=== PATIENT | female | born 1995 | race Caucasian/White ===

== ENCOUNTER 2018-05-28 02:25 | Emergency (ER) | END 2018-05-28 05:49 | disposition home or self-care (01) ==

== ENCOUNTER 2018-06-06 02:25 | Inpatient (IN) | END 2018-06-06 20:56 | disposition home or self-care (01) | DRG 770 ==

== ENCOUNTER 2018-10-31 10:21 | Emergency (ER) | payer SELFPAY ==
[~2018-10-31] VITALS: Ht 165.1 cm; Wt 53.8 kg
[~2018-10-31 10:21] MED LIST: ACET1TAB40 PO
[2018-10-31 10:26] VITALS: BP 141/88; PULSE 90; RESP 18; Ht 165.1 cm; Wt 53.8 kg
[2018-10-31] MEDS ORDERED: ONDANSETRON 4 MG INJ IV STA (12:29)
[2018-10-31] MEDS ORDERED: SOD CHLORIDE 0.9% 500 ML IV STA (12:29)
[2018-10-31] MEDS ORDERED: FAMOTIDINE 20 MG INJ IV STA (12:29)
--- NOTE | 2018-10-31 12:33 | ERD ---
ER Documentation Chief Complaint Chief Complaint NAUSEA, VOMITING AND ABDOMINAL CRAMPING THIS MORNING HPI 22-year-old female, with history of anxiety and migraine, presents to the emergency department, complaining of nausea, vomiting and headache that started this morning. The patient denies fever, no chills, no blurred vision, no distal weakness, numbness or tingling. ROS All systems reviewed and are negative except as per history of present illness. Medications Home Meds Active Scripts Hydroxyzine Hcl* (Hydroxyzine Hcl*) 50 Mg Tablet, 50 MG PO Q8 PRN for NAUSEA AND ANXIETY, #20 TAB Prov:FABIOLA JOY MD 10/31/18 Acetaminophen* (Tylenol*) 325 Mg Tablet, 2 TAB PO Q6 PRN for PAIN AND OR ELEVATED TEMP, #20 TAB Prov:FABIOLA JOY MD 10/31/18 Gzgjktzlmu-Yvskvhbxcfref-Gpskonup* (Fioricet*) 50-300-40 Mg Capsule, 1 CAP PO QHS, #7 CAP Prov:FABIOLA JOY MD 10/31/18 Acetaminophen with Codeine (Acetaminophen-Cod #3 Tablet) 1 Each Tablet, 1 TAB PO Q6H, #10 TAB 1 Refill Prov:SONNY HEALY MD 06/06/18 Allergies Allergies: Coded Allergies: ibuprofen (Verified Allergy, Unknown, 05/28/18) rash PMhx/Soc History of Surgery: Yes (vaginal hematoma) Anesthesia Reaction: No Hx Neurological Disorder: No Hx Respiratory Disorders: No Hx Cardiac Disorders: Yes (murmur) Hx Psychiatric Problems: No Hx Miscellaneous Medical Probl: Yes (insomnia) Hx Alcohol Use: No Hx Substance Use: Yes (cannabis for insomnia) Hx Tobacco Use: Yes Smoking Status: Current some day smoker FmHx Family History: No diabetes, No coronary disease Physical Exam Vitals Vital Signs Date Temp Pulse Resp B/P (MAP) Pulse Ox O2 O2 Flow FiO2 Time Delivery Rate 10/31/18 97.8 90 18 141/88 99 10:26 (105) Physical Exam Const: No acute distress Head: Atraumatic Eyes: Normal Conjunctiva ENT: Normal External Ears, Nose and Mouth. Neck: Full range of motion. No meningismus. Resp: Clear to auscultation bilaterally Cardio: Regular rate and rhythm, no murmurs Abd: Soft, non tender, non distended. Normal bowel sounds Skin: No petechiae or rashes Back: No midline or flank tenderness Ext: No cyanosis, or edema Neur: Awake and alert Psych: Normal Mood and Affect Result Diagram: 10/31/18 1247 10/31/18 1247 Results 24 hrs Laboratory Tests Test 10/31/18 12:46 10/31/18 12:47 POC Beta HCG, Qualitative NEGATIVE White Blood Count 8.5 10^3/ul Red Blood Count 4.64 10^6/ul Hemoglobin 13.7 g/dl Hematocrit 41.6 % Mean Corpuscular Volume 89.7 fl Mean Corpuscular Hemoglobin 29.5 pg Mean Corpuscular Hemoglobin Concent 32.9 g/dl Red Cell Distribution Width 13.6 % Platelet Count 293 10^3/UL Mean Platelet Volume 10.7 fl Immature Granulocytes % 0.400 % Neutrophils % 82.6 % Lymphocytes % 12.4 % Monocytes % 4.1 % Eosinophils % 0.1 % Basophils % 0.4 % Nucleated Red Blood Cells % 0.0 /100WBC Immature Granulocytes # 0.030 10^3/ul Neutrophils # 7.0 10^3/ul Lymphocytes # 1.1 10^3/ul Monocytes # 0.4 10^3/ul Eosinophils # 0.0 10^3/ul Basophils # 0.0 10^3/ul Nucleated Red Blood Cells # 0.0 10^3/ul Urine Color YELLOW Urine Clarity CLEAR Urine pH 7.0 Urine Specific [place] 1.024 Urine Ketones TRACE mg/dL Urine Nitrite NEGATIVE mg/dL Urine Bilirubin NEGATIVE mg/dL Urine Urobilinogen NEGATIVE mg/dL Urine Leukocyte Esterase NEGATIVE [place]andra[place]ant/ul Urine Microscopic RBC 169 /HPF Urine Microscopic WBC 1 /HPF Urine Hemoglobin 3+ mg/dL Urine Glucose NEGATIVE mg/dL Urine Total Protein NEGATIVE mg/dl Urine Test NEGATIVE Sodium Level 141 mmol/L Potassium Level 4.4 mmol/L Chloride Level 107 mmol/L Carbon Dioxide Level 23 mmol/L Anion Gap 11 Blood Urea Nitrogen 14 mg/dl Creatinine 0.57 mg/dl Est Glomerular Filtrat Rate mL/min > 60 mL/min Glucose Level 94 mg/dl Calcium Level 9.8 mg/dl Total Bilirubin 1.0 mg/dl Direct Bilirubin 0.00 mg/dl Indirect Bilirubin 1.0 mg/dl Aspartate Amino Transf (AST/SGOT) 20 IU/L Alanine Aminotransferase (ALT/SGPT) 17 IU/L Alkaline Phosphatase 92 IU/L Total Protein 8.3 g/dl Albumin 4.7 g/dl Globulin 3.60 g/dl Albumin/Globulin Ratio 1.30 Lipase 87 U/L Current Medications Medications Dose Sig/Ascencion Start Time Status Last (Trade) Ordered Route PRN Stop Time Admin Dose Reason Admin Sodium 500 ml @ Q1H STAT 10/31/18 DC 10/31/18 Chloride 500 mls/hr IV 12:29 12:48 10/31/18 13:28 Ondansetron 4 mg ONCE STAT 10/31/18 DC 10/31/18 HCl (Zofran IV 12:29 12:48 Inj) 10/31/18 12:32 Famotidine 20 mg ONCE STAT 10/31/18 DC 10/31/18 (Pepcid Iv) IV 12:29 12:48 10/31/18 12:32 Lorazepam 0.5 mg ONCE ONCE 10/31/18 DC 10/31/18 (Ativan) PO 13:00 13:03 10/31/18 13:01 Procedures/MDM Vital signs stable, Physical exam unremarkable, neurovascular exam intact. Differential diagnosis include but not limited to: Classical migraine, sinusitis, visual corrective problems, side effects of medications, dehydration, electrolyte imbalance, endocrine/autoimmune medical condition, stress, anxiety, tension headache. Low suspicion for meningitis, COLLETER tumor, cerebrovascular event. Physical examination and clinical presentation consistent most likely with migraine headache. During the ED course the patient remained stable, no new complaints. Results and clinical impression discussed with patient who agrees with management. The patient is stable to be treated outpatient and will be discharged home, some side effects of prescribed medications (headache, rash, nausea, vomiting, diarrhea, drowsiness, habituation, bleeding, hypertension, interactions with other medications) were reviewed. Follow up with the primary care provider in the next 48h has been recommended. If symptoms persist, worsen or new symptoms develop, then patient should return to the ED immediately. Instructions explained and given directly by me to the patient with acknowledgment and demonstrated understanding. Disclaimer: Inadvertent spelling and grammatical errors are likely due to EHR/dictation software use and do not reflect on the overall quality of patient care. Also, please note that the electronic time recorded on this note does not necessarily reflect the actual time of the patient encounter. Departure Diagnosis: Primary Impression: Migraine headache Condition: Stable Additional Instructions: Thank you very much for allowing us to participate in your care. Your health and safety is our top priority at [facility]. The evaluation in the emergency department has been done to rule out an acute emergency, therefore, chronic conditions like malignancy or other diseases have not been evaluated; therefore, you need to follow up with a primary care provider in the next 48h. If symptoms persist, worsen or new symptoms develop, then patient should return to the ED immediately. Call your primary care doctor TOMORROW for an appointment during the next 2-4 days and bring all the information provided. Have prescriptions filled and follow precisely the directions on the label. If the symptoms get worse and your provider is unavailable, return to the Emergency Department immediately. FABIOLA JOY MD Oct 31, 2018 12:33
[2018-10-31] MEDS ORDERED: LORAZEPAM 0.5 MG TAB PO ONE (13:00)
[2018-10-31] MEDS ORDERED: ACET325T33 PO (13:27)
[2018-10-31] MEDS ORDERED: BUTA1CAP38 PO (13:27)
[2018-10-31] MEDS ORDERED: HYDR50TA15 PO (13:27)
== END 2018-10-31 13:44 | disposition home or self-care (01) ==
LOC: FTE 10:21
DX: G43.909 Migraine, unspecified, not intractable, without status migrainosus (principal); F17.210 Nicotine dependence, cigarettes, uncomplicated
CPT/HCPCS: 36415; 80053; 81001; 81025; 83690; 84703; 85025; 96374; 96375; 99284; J2405; J7040

== ENCOUNTER 2019-01-12 04:14 | Emergency (ER) | payer MEDICAID ==
[~2019-01-12] VITALS: Ht 162.6 cm; Wt 59.1 kg
[~2019-01-12 04:14] MED LIST changes: +ACET325T33 PO; +BUTA1CAP38 PO; +HYDR50TA15 PO
[2019-01-12 04:21] VITALS: Ht 162.6 cm; Wt 59.1 kg
[2019-01-12] MEDS ORDERED: SUMA50TA2 PO (06:20)
--- NOTE | 2019-01-12 06:24 | ERD ---
ER Documentation Chief Complaint Chief Complaint AP, VOMITING X'S 1 HOUR HPI 23-year-old female presents the emergency department complaining of a headache. Patient states that after being in a steam room for an extended period of time last night, she woke this morning at approximately 3 AM with what she describes as her usual migraine headache. This is not the worst headache of her life nor thunderclap in nature and the headache is associated with no focal weakness, numbness, neck stiffness or fever. The pain is bifrontal and does not radiate. She reports the pain is moderate. ROS All systems reviewed and are negative except as per history of present illness. Medications Home Meds Active Scripts Sumatriptan Succinate* (Imitrex*) 50 Mg Tablet, 50 MG PO BID PRN for MIGRAINE HEADACHE, #30 TAB May repeat after 2 hours if needed; MAX 200 mg/24 hours Prov:VIKTOR OSORIO 01/12/19 Hydroxyzine Hcl* (Hydroxyzine Hcl*) 50 Mg Tablet, 50 MG PO Q8 PRN for NAUSEA AND ANXIETY, #20 TAB Prov:FABIOLA JOY MD 10/31/18 Acetaminophen* (Tylenol*) 325 Mg Tablet, 2 TAB PO Q6 PRN for PAIN AND OR ELEVATED TEMP, #20 TAB Prov:FABIOLA JOY MD 10/31/18 Gsnhfqyrtc-Hzjsjjofrlhfs-Thnnwbcd* (Fioricet*) 50-300-40 Mg Capsule, 1 CAP PO QHS, #7 CAP Prov:FABIOLA JOY MD 10/31/18 Acetaminophen with Codeine (Acetaminophen-Cod #3 Tablet) 1 Each Tablet, 1 TAB PO Q6H, #10 TAB 1 Refill Prov:SONNY HEALY MD 06/06/18 Allergies Allergies: Coded Allergies: ibuprofen (Verified Allergy, Unknown, 05/28/18) rash PMhx/Soc History of Surgery: Yes (vaginal hematoma) Anesthesia Reaction: No Hx Neurological Disorder: No Hx Respiratory Disorders: No Hx Cardiac Disorders: Yes (murmur) Hx Psychiatric Problems: No Hx Miscellaneous Medical Probl: Yes (insomnia) Hx Alcohol Use: No Hx Substance Use: Yes (cannabis for insomnia) Hx Tobacco Use: No Smoking Status: Never smoker Physical Exam Vitals Vital Signs Date Temp Pulse Resp B/P (MAP) Pulse Ox O2 O2 Flow FiO2 Time Delivery Rate 01/12/19 98.7 76 18 123/89 99 04:21 (100) Physical Exam GENERAL: The patient is well developed and appropriate for usual state of health in no apparent distress HEENT: Pupils equal, round, and reactive to light. EOMI. There is no scleral icterus. NECK: C-spine is soft and supple, there is no meningismus. There is no cervical lymphadenopathy. LUNGS: Clear to auscultation bilaterally. There are no rales, wheezes or rhonchi. HEART: Regular rate and rhythm, no murmurs, clicks, rubs or gallops. ABDOMEN: Soft, non-tender, non-distended. There are bowel sounds in all four quadrants. No rebound or guarding. EXTREMITIES: There is no peripheral cyanosis or edema. No focal swelling or erythema. NEURO: The patient moves all four extremities with 5/5 strength. Cranial nerves II - XII are intact. Normal gait. Alert and oriented SKIN: There is no apparent rash or petechiae. HEME/LYMPHATIC: There is no evidence of excessive bruising or lymphedema. PSYCHIATRIC: The patient does not appear anxious or depressed. Result Diagram: 01/12/19 0537 01/12/19 0537 Results 24 hrs Laboratory Tests Test 01/12/19 05:37 White Blood Count 10.9 10^3/ul Red Blood Count 4.52 10^6/ul Hemoglobin 13.5 g/dl Hematocrit 40.0 % Mean Corpuscular Volume 88.5 fl Mean Corpuscular Hemoglobin 29.9 pg Mean Corpuscular Hemoglobin Concent 33.8 g/dl Red Cell Distribution Width 12.8 % Platelet Count 239 10^3/UL Mean Platelet Volume 10.4 fl Immature Granulocytes % 0.400 % Neutrophils % 86.4 % Lymphocytes % 8.9 % Monocytes % 4.0 % Eosinophils % 0.1 % Basophils % 0.2 % Nucleated Red Blood Cells % 0.0 /100WBC Immature Granulocytes # 0.040 10^3/ul Neutrophils # 9.4 10^3/ul Lymphocytes # 1.0 10^3/ul Monocytes # 0.4 10^3/ul Eosinophils # 0.0 10^3/ul Basophils # 0.0 10^3/ul Nucleated Red Blood Cells # 0.0 10^3/ul Urine Color YELLOW Urine Clarity CLOUDY Urine pH 7.0 Urine Specific [place] 1.019 Urine Ketones NEGATIVE mg/dL Urine Nitrite NEGATIVE mg/dL Urine Bilirubin NEGATIVE mg/dL Urine Urobilinogen NEGATIVE mg/dL Urine Leukocyte Esterase NEGATIVE [place]/ul Urine Microscopic RBC 5 /HPF Urine Microscopic WBC 3 /HPF Urine Amorphous Crystals FEW /HPF Urine Hemoglobin 1+ mg/dL Urine Glucose NEGATIVE mg/dL Urine Total Protein NEGATIVE mg/dl Sodium Level 144 mmol/L Potassium Level 4.3 mmol/L Chloride Level 106 mmol/L Carbon Dioxide Level 28 mmol/L Anion Gap 10 Blood Urea Nitrogen 12 mg/dl Creatinine 0.61 mg/dl Est Glomerular Filtrat Rate mL/min > 60 mL/min Glucose Level 113 mg/dl Calcium Level 9.2 mg/dl Total Bilirubin 1.0 mg/dl Direct Bilirubin 0.00 mg/dl Indirect Bilirubin 1.0 mg/dl Aspartate Amino Transf (AST/SGOT) 20 IU/L Alanine Aminotransferase (ALT/SGPT) 22 IU/L Alkaline Phosphatase 82 IU/L Total Protein 8.0 g/dl Albumin 4.5 g/dl Globulin 3.50 g/dl Albumin/Globulin Ratio 1.28 Lipase 74 U/L Current Medications Medications Dose Sig/Asecncion Start Time Status Last (Trade) Ordered Route PRN Stop Time Admin Dose Reason Admin Sumatriptan 6 mg ONCE ONCE 01/12/19 Succinate SC 06:30 01/12/19 (Imitrex) 06:31 Procedures/MDM Patient was taken to a room, seen and examined. Initial diagnostic tests were appreciated Medical decision makin-year-old female presents to the emergency department with what appears to be a fairly typical migraine headache. She has no focal neurologic symptoms to make me concerned about intracranial concerns. She de monstrates no evidence of meningitis. She has no risk factors for, nor findings of subarachnoid hemorrhage. Patient is neurologically normal and after symptomatic relief seems to be appropriate for discharge. Departure Diagnosis: Primary Impression: Migraine Condition: Stable Patient Instructions: Headache, Migraine (Classical) Additional Instructions: See your doctor for follow-up as discussed. Take a copy of your test results, if appropriate, to this follow-up visit. See your doctor or return here if your symptoms do not improve as expected. At any time, please return to the emergency department for any change or worsening in her symptoms. VIKTOR OSORIO Jan 12, 2019 06:24
[2019-01-12] MEDS ORDERED: SUMATRIPTAN 6 MG/0.5 ML INJ SC ONE (06:30)
[2019-01-12 06:52] VITALS: BP 140/82; PULSE 71; RESP 18
== END 2019-01-12 06:52 | disposition home or self-care (01) ==
LOC: FTE 04:14
DX: G43.909 Migraine, unspecified, not intractable, without status migrainosus (principal)
CPT/HCPCS: 36415; 80053; 81001; 83690; 85025; 96372; J3030; Z7502